=== PATIENT | female | born 1990 | race African-American/Black ===

== ENCOUNTER 2016-07-03 11:18 | Emergency (ER) | payer OTHER ==
--- NOTE | 2016-07-03 11:48 | ER Document Report ---
ED GI/ - General Chief Complaint: Vaginal Discharge Stated Complaint: VAGINAL PROBLEM Time seen by provider: 11:45 Mode of Arrival: Ambulatory Information source: Patient Notes: 26-year-old female presents to ED for vaginal discharge with slight odor. She states the discharge is a garland colored. She states she also eat was at her dad' s house and used some [place] soap and now has a rash to the entire area. TRAVEL OUTSIDE OF THE [place] IN LAST 30 DAYS: No - HPI Patient complains to provider of: Vaginal discharge, Other - Rash to the perineum Onset: Other - About 2 days Timing/Duration: Gradual Quality of pain: Burning - The rash is burning otherwise no pain Severity in ED: None Pain Level: Denies Associated symptoms: Vaginal discharge, Other - Rash to perineum Exacerbated by: Denies Relieved by: Denies Similar symptoms previously: Yes Recently seen / treated by doctor: No - Related Data Allergies/Adverse Reactions: No Known Allergies Allergy (Verified 07/03/16 11:22) Home Medications: Current Home Medications No Home Medications 07/03/16 [History] Past Medical History - General Information source: Patient Last Menstrual Period: 06/22/2016 - Social History Smoking Status: Never Smoker Chew tobacco use (# tins/day): No Frequency of alcohol use: None Drug Abuse: None Occupation: [employer] Lives with: Family Family History: DM, Hypertension Patient has suicidal ideation: No Patient has homicidal ideation: No - Past Medical History Cardiac Medical History: Reports: None Pulmonary Medical History: Reports: None EENT Medical History: Reports: None Neurological Medical History: Reports: None Endocrine Medical History: Reports: None Renal/ Medical History: Reports: Hx Ectopic Malignancy Medical History: Reports: None GI Medical History: Reports: None Musculoskeltal Medical History: Reports None Skin Medical History: Reports None Psychiatric Medical History: Reports: None Traumatic Medical History: Reports: None Infectious Medical History: Reports: None Past Surgical History: Reports: Hx Section, Hx Gynecologic Surgery - Removal of ectopic - Immunizations Hx Diphtheria, Pertussis, Tetanus Vaccination: Yes Review of Systems - Review of Systems Constitutional: No symptoms reported EENT: No symptoms reported Cardiovascular: No symptoms reported Respiratory: No symptoms reported Gastrointestinal: No symptoms reported Genitourinary: No symptoms reported Female Genitourinary: Vaginal discharge, Vaginal odor, Other - Perineal rash Musculoskeletal: No symptoms reported Skin: No symptoms reported Hematologic/Lymphatic: No symptoms reported Neurological/Psychological: No symptoms reported -: Yes All other systems reviewed and negative Physical Exam - Vital signs Vitals: Temp Pulse Resp BP Pulse Ox 97.5 F 82 14 109/64 100 07/03/16 11:23 07/03/16 11:23 07/03/16 11:23 07/03/16 11:23 07/03/16 11:23 Interpretation: Normal - General General appearance: Appears well, Alert - HEENT Head: Normocephalic, Atraumatic Eyes: Normal Pupils: PERRL - Respiratory Respiratory status: No respiratory distress Chest status: Nontender Breath sounds: Normal Chest palpation: Normal - Cardiovascular Rhythm: Regular Heart sounds: Normal auscultation Murmur: No - Abdominal Inspection: Normal Distension: No distension Bowel sounds: Normal Tenderness: Nontender Organomegaly: No organomegaly - Genitourinary External exam: Other - Area female fine rash Speculum exam: Cervix closed, Vaginal discharge - Raised colored thick Vaginal bleeding: None Bimanuel exam: Normal - Back Back: Normal, Nontender - Extremities General upper extremity: Normal inspection, Nontender, Normal color, Normal ROM , Normal temperature General lower extremity: Normal inspection, Nontender, Normal color, Normal ROM , Normal temperature, Normal weight bearing. No: Abhishek's sign - Neurological Neuro grossly intact: Yes Cognition: Normal Orientation: AAOx4 Kellee Coma Scale Eye Opening: Spontaneous [place] Coma Scale Verbal: Oriented [place] Coma Scale Motor: Obeys Commands [place] Coma Scale Total: 15 Speech: Normal Motor strength normal: LUE, RUE, LLE, RLE Sensory: Normal - Psychological Associated symptoms: Normal affect, Normal mood - Skin Skin Temperature: Warm Skin Moisture: Dry Skin Color: Normal Course - Re-evaluation Re-evalutation: 07/03/16 12:20 Discussed lab results with patient patient has bacterial vaginosis budding yeast and white cells in her wet mount so we will treat her with Rocephin 250 IM and azithromycin 1 g by mouth Flagyl 500 mg by mouth today and twice a day for 7 days and Diflucan 150 now. Patient has agreed to this treatments she does not want to wait for the GC and chlamydia results so she will be treated now and will call back in 3 hours for her results. She is aware that if it is positive for the GC or chlamydia that she will need to get her partner treated before having any further intercourse. - Vital Signs Vital signs: Temp Pulse Resp BP Pulse Ox 97.4 F 70 16 109/72 100 07/03/16 12:55 07/03/16 12:55 07/03/16 12:55 07/03/16 12:55 07/03/16 12:55 Discharge - Discharge Clinical Impression: Yeast vaginitis, Bacterial vaginitis Condition: Stable Disposition: HOME, SELF-CARE Instructions: Family Physicians / Practices Additional Instructions: VAGINITIS: Your exam shows that you have vaginitis, a vaginal infection. The infection can be caused by a many different organisms, including trichomonas or Gardnerella. The usual symptoms are vaginal irritation and discharge. The treatment is usually antibiotics such as Flagyl. Laboratory tests can determine which germ is responsible. Use the medication as prescribed. Because this infection can be transmitted sexually, your sexual partner may need to be checked and treated also. If your physician has not discussed this with you, please check before resuming sexual relations. If a culture shows gonorrhea or chlamydia, the infection must be reported to the health department. Call the doctor if you develop pelvic pain, fever, or problems with urination, or if you don't improve as expected. VAGINOSIS, BACTERIAL: Your exam shows you have bacterial vaginosis. This condition is due to an overgrowth of bacteria in the vagina. Symptoms may include vaginal itching or pain, a smelly discharge, and sometimes burning with urination. Normally this is not transmitted by sexual contact. Vaginosis can be treated with oral or topical antibiotics. Metronidazole ( Flagyl) pills are usually effective. Topical vaginal creams include Cleocin and Metro-Gel. You should avoid sexual contact until your symptoms are all better. Call the doctor if you develop pelvic pain, fever, or problems with urination, or if you don't improve as expected. VAGINAL YEAST INFECTION: You have evidence of a yeast infection -- called "john." A vaginal yeast infection often causes itching and discharge. While not dangerous, it can be very unpleasant. A yeast infection often follows the use of powerful antibiotics. It is more likely to occur in diabetics. The treatment now is usually a single pill of Diflucan, but also an antifungal cream or suppository may be used for a few days. You do not need to avoid sexual intercourse. Recurrences are common. You can make a recurrence less likely by wearing cotton underwear and avoiding tight clothing. For mild recurrences, you can try nhwj-[id number] creams or suppositories that are made specifically for yeast. If the symptoms do not resolve, you should follow up for re-examination. Sometimes treatment of the sexual partner is necessary if infections are recurrent. CEPHALOSPORINS: An antibiotic of the cephalosporin class has been prescribed. This type of antibiotic covers a wide variety of infections, including those of the skin, lungs, middle ear, and urinary tract. This antibiotic is somewhat similar to the penicillin family. In rare cases , a person who is allergic to penicillin will also be allergic to this medication. If you have had a severe allergic reaction to penicillin, and have not taken this antibiotic since that time, notify your doctor. Antibiotics which cover many germs ("broad spectrum" antibiotics) are more likely to cause diarrhea or "yeast" infections. Women prone to vaginal yeast problems may suffer an attack after taking this antibiotic. In infants, oral thrush (white spots "stuck" on the cheek) or yeast diaper rash may result. See your doctor if these problems occur. Call the doctor at once if you develop hives, itching, shortness of breath , or lightheadedness. AZITHROMYCIN: Azithromycin (Zithromax) is a broad spectrum antibiotic in the same class as erythromycin. It can treat a variety of bacterial infections, but is most frequently used for respiratory infections. Azithromycin is extremely long-lasting. It accumulates in body tissues and continues to kill bacteria for many days. In order to improve absorption, Azithromycin should be taken at least one hour before or two hours after a meal. It does not have the same strong tendency to upset the stomach as erythromycin and is usually very well tolerated. Patients who have had a rash or other true allergic reactions to erythromycin should not take this medication. Call if you develop gastrointestinal distress, severe diarrhea, rash, hives, itching, or shortness of breath. METRONIDAZOLE: Metronidazole (Flagyl) has been prescribed. This medication is used to kill a type of bacteria called anaerobes, and protozoan parasites such as trichomonas and Giardia. Flagyl often causes a metallic taste in the mouth and mild nausea. Do not use alcohol in any form with Flagyl (including alcohol in medication elixirs). Flagyl interacts with alcohol to cause flushing, palpitations, headache, stomach cramps, and vomiting. Do not use Flagyl if you are taking Antabuse (disulfiram). Call the doctor at once if you develop rash, shortness of breath, itching, or lightheadedness. FLUCONAZOLE: Fluconazole (Diflucan) is an antifungal drug. It is useful for serious fungal infections, but is also excellent for oral or vaginal yeast infections. Diflucan interacts with some medicines. This is a concern if you are taking anticoagulants (such as Coumadin), phenytoin (Dilantin), cyclosporin, or oral hypoglycemics (such as tolbutamide, Orinase, glipizide, Glucotrol, glyburide, DiaBeta, Glynase, and Micronase). Be sure the doctor knows if you are taking one of these medicines. We don't know how Diflucan affects . If you are planning to become , discuss this with your doctor. Diflucan has few side effects. Minor side effects may include nausea, headache, or diarrhea. Call the doctor if you develop a skin rash, shortness of breath, or other new symptoms. FOLLOW-UP CARE: If you have been referred to a physician for follow-up care, call the physician s office for an appointment as you were instructed or within the next two days. If you experience worsening or a significant change in your symptoms, notify the physician immediately or return to the Emergency Department at any time for re-evaluation. Please complete the patient's satisfaction survey if you get one and return. If you do not receive a survey you can go to [facility] website [email or web address] and placed her comments about your very good care. Thank you very much. It was a pleasure be in your medical provider today. Forms: Return to Work
[2016-07-03] MEDS ORDERED: AZITHROMYCIN 250 MG TABLET PO ONE (12:17)
[2016-07-03] MEDS ORDERED: LIDOCAINE 1% INJ-PF (10 MG/ML) 30 ML SDV INJ ONE (12:17)
[2016-07-03] MEDS ORDERED: CEFTRIAXONE INJ 250 MG VIAL IM ONE (12:17)
[2016-07-03] MEDS ORDERED: FLUCONAZOLE 100 MG TABLET PO ONE (12:18)
[2016-07-03] MEDS ORDERED: METRONIDAZOLE 500 MG TABLET PO ONE (12:18)
[2016-07-03 12:59] VITALS: BP 109/72
[2016-07-03 13:33] LABS: CHLAM PCR NOT DETECTED (NOT DETECT)
== END 2016-07-03 12:59 | disposition home or self-care (01) ==
LOC: ER 11:18
DX: N76.0 Acute vaginitis (principal); B96.89 Other specified bacterial agents as the cause of diseases classified elsewhere; B37.3 Candidiasis of vulva and vagina
CPT/HCPCS: 99283; 96372; 87210; 87491; 87591; J3490; J0696

== ENCOUNTER 2016-08-18 08:49 | Emergency (ER) | payer OTHER ==
--- NOTE | 2016-08-18 09:37 | ER Document Report ---
ED Medical Screen (RME) - General Mode of Arrival: Ambulatory Information source: Patient TRAVEL OUTSIDE OF THE [place] IN LAST 30 DAYS: No - General Chief Complaint: Vaginal Discharge Stated Complaint: VAGINAL DISCHARGE Time Seen by Provider: 08/18/16 09:30 Notes: Patient is a 26 year old female presenting to the ED for vaginal discharge. Patient states her discharge is thick and clump-like. Patient states it has an odor but denies any burning or itching. Patient is not on control. Patient is sexually active and last had sexual intercourse 2 weeks ago. Patient denies any new partners. Patient's last menstrual period was 07/21/16. (ELIZABETH LOUIE) - Related Data Allergies/Adverse Reactions: No Known Allergies Allergy (Verified 08/18/16 08:50) Past Medical History Renal/ Medical History: Reports: Hx Ectopic . Denies: Hx Peritoneal Dialysis Musculoskeltal Medical History: Denies Hx Arthritis Past Surgical History: Reports: Hx Section, Hx Gynecologic Surgery - Removal of ectopic - Immunizations Hx Diphtheria, Pertussis, Tetanus Vaccination: Yes Physical Exam - Vital signs Vitals: Temp Pulse Resp BP Pulse Ox 98.2 F 81 16 120/69 100 08/18/16 08:55 08/18/16 08:55 08/18/16 08:55 08/18/16 08:55 08/18/16 08:55 - Notes Notes: GENERAL: Alert, interacts well. No acute distress. RESPIRATORY: No respiratory distress. (ELIZABETH LOUIE) Doctor's Discharge - Discharge Clinical Impression: Bacterial vaginosis Condition: Good Disposition: HOME, SELF-CARE Additional Instructions: Finish all antibiotics as prescribed Follow-up with your primary care provider if symptoms not better after treatment Will call if further treatment needed once all results are obtained Return as needed Prescriptions: Metronidazole [Flagyl 500 mg Tablet] 500 mg PO BID #14 tablet Scribe Documentation - Scribe Written by Alejandra:: Alejandra Monroy, 08/18/16 9:30 acting as scribe for :: Devin
[2016-08-18 09:52] LABS: APPEARANCE,URINE SLIGHTLY-CLOUDY; BILIRUBIN,URINE NEGATIVE (NEGATIVE); GLUCOSE, URINE NEGATIVE (NEGATIVE); KETONES,URINE NEGATIVE (NEGATIVE); LEUKOCYTE ESTERASE,URINE NEGATIVE (NEGATIVE); NITRITE,URINE NEGATIVE (NEGATIVE); PROTEIN,URINE NEGATIVE (NEGATIVE); URINE SPECIFIC GRAVITY 1.011; UROBILINOGEN,URINE NEGATIVE mg/dL (<2.0)
--- NOTE | 2016-08-18 11:10 | ER Document Report ---
HPI - HPI Patient complains to provider of: Vaginal discharge Onset: Other Onset/Duration: Sudden Quality of pain: No pain Severity: None Pain Level: Denies Associated Symptoms: None Exacerbated by: Denies Relieved by: Denies Similar symptoms previously: Yes Recently seen / treated by doctor: No - ROS ROS below otherwise negative: Yes Systems Reviewed and Negative: Yes All other systems reviewed and negative - CONSTITUTIONAL Constitutional: DENIES: Fever - EENT EENT: DENIES: Congestion - NEURO Neurology: DENIES: Headache - CARDIOVASCULAR Cardiovascular: DENIES: Chest pain - RESPIRATORY Respiratory: DENIES: Trouble Breathing - GASTROINTESTINAL Gastrointestinal: DENIES: Abdominal Pain - URINARY Urinary: DENIES: Dysuria - REPRODUCTIVE LMP: 07/21/16 Reproductive: DENIES: : - MUSCULOSKELETAL Musculoskeletal: DENIES: Extremity pain - DERM Skin Color: Normal Skin Problems: None Past Medical History - General Information source: Patient - Social History Smoking Status: Never Smoker Frequency of alcohol use: None Drug Abuse: None Lives with: Family Family History: DM, Hypertension Patient has suicidal ideation: No Patient has homicidal ideation: No Renal/ Medical History: Reports: Hx Ectopic . Denies: Hx Peritoneal Dialysis Past Surgical History: Reports: Hx Section, Hx Gynecologic Surgery - Removal of ectopic - Immunizations Hx Diphtheria, Pertussis, Tetanus Vaccination: Yes Vertical Provider Document - CONSTITUTIONAL Agree With Documented VS: Yes Exam Limitations: No Limitations General Appearance: WD/WN, No Apparent Distress - INFECTION CONTROL TRAVEL OUTSIDE OF THE [place] IN LAST 30 DAYS: No - HEENT HEENT: Atraumatic, Normocephalic - RESPIRATORY Respiratory: Breath Sounds Normal, No Respiratory Distress O2 Sat by Pulse Oximetry: 100 - CARDIOVASCULAR Cardiovascular: Regular Rate, Regular Rhythm - GI/ABDOMEN Gastrointestinal: Abdomen Soft, Abdomen Non-Tender, Normal Bowel Sounds - MUSCULOSKELETAL/EXTREMETIES Musculoskeletal/Extremeties: MAEW, FROM - NEURO Level of Consciousness: Awake, Alert, Appropriate - DERM Integumentary: Warm, Dry Course - Vital Signs Vital signs: Temp Pulse Resp BP Pulse Ox 98.2 F 81 16 120/69 100 08/18/16 08:55 08/18/16 08:55 08/18/16 08:55 08/18/16 08:55 08/18/16 08:55 - Laboratory Laboratory results interpreted by me: 08/18/16 09:38 Urine Blood SMALL H Discharge - Discharge Clinical Impression: Bacterial vaginosis Condition: Good Disposition: HOME, SELF-CARE Additional Instructions: Finish all antibiotics as prescribed Follow-up with your primary care provider if symptoms not better after treatment Will call if further treatment needed once all results are obtained Return as needed Prescriptions: Metronidazole [Flagyl 500 mg Tablet] 500 mg PO BID #14 tablet
[2016-08-18 11:29] VITALS: BP 109/63
[2016-08-18 12:24] LABS: CHLAM PCR NOT DETECTED (NOT DETECT)
== END 2016-08-18 11:23 | disposition home or self-care (01) ==
LOC: ER 08:49
DX: N76.0 Acute vaginitis (principal); B96.89 Other specified bacterial agents as the cause of diseases classified elsewhere
CPT/HCPCS: 81001; 81025; 87210; 87491; 87591; 99283